=== PATIENT | female | born 2000 | race Caucasian/White ===

== ENCOUNTER 2023-10-04 20:00 | Outpatient (CLI) | payer BC ==
[2023-10-04 21:35] VITALS: BP 113/72; PULSE 102; RESP 16; TEMP 98
--- NOTE | 2023-10-05 09:11 | P.MSEPDOC ---
Presenting Problems - Arrival Data Date of Arrival on Unit: 10/04/23 Time of Arrival on Unit: 20:00 Mode of Transport: Ambulatory - Complaint OB-Reason for Admission/Chief Complaint: Pain Comment: Patient presents to triage with complaints of mild nausea and upper abdominal pain that shoots across abdomen when lying down in bed at night. Medical History - Information : 2 Para: 1 Term: 1 : 0 Abortions: Spontaneous or Elective: 0 Number of Living Children: 1 - Gestational Age Gestational Age by NICKI (wks/days): 34 Weeks and 3 Days Review of Systems - Review of Systems Constitutional: No problems Breast: No problems ENT: No problems Cardiovascular: No problems Respiratory: No problems Gastrointestinal: No problems Genitourinary: No problems Musculoskeletal: No problems Neurological: No problems Skin: No problems Vital Signs - Temperature Temperature: 98.0 F Temperature Source: Temporal Artery Scan - Pulse Pulse Oximetery Pulse Rate: 102 Pulse Assessment Method: Pulse Oximetry - Respirations Respiratory Rate: 16 Oxygen Delivery Method: Room Air O2 Sat by Pulse Oximetry: 97 - Blood Pressure Right Arm Blood Pressure: 113/72 Blood Pressure Mean: 85 Blood Pressure Source: Automatic Cuff Medical Screen Scoring - Assessment - Baby A Baseline FHR: 155 Heart Rate - NICHD Category: Category I (Normal) NST: Reactive Physician Notification - Physician Notified Physician Notified Date: 10/04/23 Physician Notified Time: 20:39 Physician: Stephanie Rader New Order Received: Yes (discharge home) Maternal Triage Index - Maternal Triage Index Presenting for scheduled procedure w/no complaint: No - Stat/Priority 1 Stat Priority 1: No - Urgent/Priority 2 Urgent Priority 2: No Provider Notified: Stephanie Rader - Prompt/Priority 3 Prompt Priority 3: Yes Criteria Met for Priority 3: Patient presents to triage with complaints of mild nausea and upper abdominal pain that shoots across abdomen when lying down in bed at night. Disposition - Disposition OB Disposition: Discharge to home Discharge Date: 10/04/23 Discharge Time: 21:22 I agree with the RN Medical Screening Exam: Yes Case reviewed; plan agreed upon as documented in EMR&OBIX.: Yes Diagnosis: PAIN, UNSPECIFIED
== END 2023-10-04 21:24 ==
LOC: FBPOP 20:00
PROVIDERS: ATTEND Obstetrics & Gynecology
DX: O21.9 Vomiting of pregnancy, unspecified (principal); O99.891 Other specified diseases and conditions complicating pregnancy; Z3A.34 34 weeks gestation of pregnancy
CPT/HCPCS: 59025; 99213

== ENCOUNTER 2023-11-06 11:26 | Outpatient (CLI) | payer BC ==
[2023-11-06 13:35] VITALS: BP 126/82; PULSE 87; RESP 16; TEMP 98.6
--- NOTE | 2023-12-15 09:19 | P.MSEPDOC ---
Presenting Problems - Arrival Data Date of Arrival on Unit: 11/06/23 Time of Arrival on Unit: 11:26 Mode of Transport: Ambulatory - Complaint OB-Reason for Admission/Chief Complaint: Other Comment: DVT symptoms Medical History - Information : 2 Para: 1 Term: 1 : 0 Abortions: Spontaneous or Elective: 0 Number of Living Children: 1 - Gestational Age Gestational Age by NICKI (wks/days): 39 Weeks and 1 Days Review of Systems - Review of Systems Constitutional: No problems Breast: No problems ENT: No problems Cardiovascular: No problems Respiratory: No problems Gastrointestinal: No problems Genitourinary: No problems Musculoskeletal: No problems Neurological: No problems Skin: No problems Comment: Reddened/bruised/edematous area on R roberst Vital Signs - Temperature Temperature: 98.6 F Temperature Source: Temporal Artery Scan - Pulse Pulse Oximetery Pulse Rate: 87 Pulse Assessment Method: Pulse Oximetry - Respirations Respiratory Rate: 16 Oxygen Delivery Method: Room Air O2 Sat by Pulse Oximetry: 98 - Blood Pressure Right Arm Blood Pressure: 126/82 Blood Pressure Mean: 96 Blood Pressure Source: Automatic Cuff Medical Screen Scoring - Assessment - Baby A Baseline FHR: 145 Heart Rate - NICHD Category: Category I (Normal) NST: Reactive Physician Notification - Physician Notified Physician Notified Date: 11/06/23 Physician Notified Time: 12:09 Physician: Ashli Jaffe New Order Received: Yes - Notification Comment Comment: Dr. Jaffe on unit, report given on maternal complaints of R roberts pain/redness. Pt has no complaints but a family hx of DVT and currently has varicose veins. NST is reactive and fetus is very active. Orders to send pt down to ER to be evaluated for DVT. Maternal Triage Index - Maternal Triage Index Presenting for scheduled procedure w/no complaint: No - Stat/Priority 1 Stat Priority 1: No - Urgent/Priority 2 Urgent Priority 2: No - Prompt/Priority 3 Prompt Priority 3: No - Non-Urgent/Priority 4 Non-Urgent Priority 4: Yes Criteria Met for Priority 4: 39 1/7wks, concerned about DVT Disposition - Disposition OB Disposition: Discharge to home Discharge Date: 11/06/23 Discharge Time: 12:15 I agree with the RN Medical Screening Exam: Yes Case reviewed; plan agreed upon as documented in EMR&OBIX.: Yes Diagnosis: RELATED CONDITIONS, UNSPECIFIED, THIRD TRIMESTER
== END 2023-11-06 12:15 | disposition home or self-care (01) ==
LOC: MERGE 11:26 → FBPOP 11:26
PROVIDERS: ATTEND Obstetrics & Gynecology Obstetrics
DX: O12.03 Gestational edema, third trimester (principal); O26.893 Other specified pregnancy related conditions, third trimester; M79.605 Pain in left leg; Z3A.39 39 weeks gestation of pregnancy
CPT/HCPCS: 59025; 99213

== ENCOUNTER 2023-11-06 12:19 | Emergency (ER) | payer BC ==
[2023-11-06 12:35] VITALS: BP 115/75; PULSE 105; RESP 18; TEMP 98
--- NOTE | 2023-11-06 13:39 | US ---
EXAMINATION TYPE: US venous doppler duplex LE RT DATE OF EXAM: 11/06/2023 1:12 PM COMPARISON: NONE CLINICAL INDICATION: Female, 22 years old with history of pain; Right lower leg pain SIDE PERFORMED: Right TECHNIQUE: The lower extremity deep venous system is examined utilizing real time linear array sonog mendel with graded compression, doppler sonography and color-flow sonography. VESSELS IMAGED: Common Femoral Vein Deep Femoral Vein Greater Saphenous Vein * Femoral Vein Popliteal Vein Small Saphenous Vein * Proximal Calf Veins (* superficial vessels) Right Leg: Appears negative for DVT IMPRESSION: Grayscale, color doppler, spectral doppler imaging performed of the deep veins of the lo wer extremities. There is normal flow, compressibility, vascular waveforms.
--- NOTE | 2023-11-06 13:58 | ED ---
Extremity Problem HPI - General Chief complaint: Extremity Problem,Nontraumatic Stated complaint: R Leg Poss Blood Clot Time Seen by Provider: 11/06/23 12:36 Source: patient, RN notes reviewed Mode of arrival: wheelchair - History of Present Illness Initial comments: 22-year-old female presents emergency department with chief complaint of right leg pain, possible DVT. Patient was sent from labor and delivery for evaluation. Patient states she has varicose veins. Patient states that she has an area of pain, swelling. Patient denies any history denies chest pain shortness of breath. Patient is currently 39 weeks - Related Data Home Medications Medication Instructions Recorded Confirmed Vit No.179/Iron/Folic 1 each PO 10/04/23 [ Tablet] Allergies Allergy/AdvReac Type Severity Reaction Status Date / Time No Known Allergies Allergy Verified 11/06/23 12:35 Review of Systems ROS Statement: Those systems with pertinent positive or pertinent negative responses have been documented in the HPI. ROS Other: All systems not noted in ROS Statement are negative. Past Medical History Past Medical History: No Reported History History of Any Multi-Drug Resistant Organisms: None Reported Past Surgical History: No Surgical Hx Reported Past Psychological History: No Psychological Hx Reported Smoking Status: Never smoker Past Alcohol Use History: None Reported Past Drug Use History: None Reported General Exam Limitations: no limitations General appearance: alert, in no apparent distress Head exam: Present: atraumatic, normocephalic, normal inspection Respiratory exam: Present: normal lung sounds bilaterally. Absent: respiratory distress, wheezes, rales, rhonchi, stridor Cardiovascular Exam: Present: regular rate, normal rhythm, normal heart sounds. Absent: systolic murmur, diastolic murmur, rubs, gallop, clicks Extremities exam: Present: other (Right leg pedal pulses equal bilaterally compared to left, there is an area of erythema tenderness in the distal tib-fib region, there is varicose veins noted) Course Vital Signs 11/06/23 12:31 Temperature 98 F Pulse Rate 105 H Respiratory 18 Rate Blood Pressure 115/75 O2 Sat by Pulse 99 Oximetry Medical Decision Making - Medical Decision Making Was pt. sent in by a medical professional or institution (, PA, SNACK BAR ATTENDANT, urgent care, hospital, or jail...) When possible be specific @ -Labor and delivery Did you speak to anyone other than the patient for history (EMS, parent, family, police, friend...)? What history was obtained from this source @ -No Did you review nursing and triage notes (agree or disagree)? Why? @ -I reviewed and agree with nursing and triage notes Were old charts reviewed (outside hosp., previous admission, EMS record, old EKG, old radiological studies, urgent care reports/EKG's, jail records)? Report findings @ -No old charts were reviewed Differential Diagnosis (chest pain, altered mental status, abdominal pain women, abdominal pain men, vaginal bleeding, weakness, fever, dyspnea, syncope, headache, dizziness, GI bleed, back pain, seizure, CVA, palpatations, mental health, musculoskeletal)? @ -Superficial thrombophlebitis, DVT EKG interpreted by me (3pts min.). @ -As above X-rays interpreted by me (1pt min.). @ -None done CT interpreted by me (1pt min.). @ -None done U/S interpreted by me (1pt. min.). @ -Ultrasound negative for acute DVT What testing was considered but not performed or refused? (CT, X-rays, U/S, labs)? Why? @ -None What meds were considered but not given or refused? Why? @ -None Did you discuss the management of the patient with other professionals (professionals i.e. , PA, SNACK BAR ATTENDANT, lab, RT, psych nurse, medical social consultant, board finisher, teacher, bsa officer, assistant case manager)? Give summary @ -No Was smoking cessation discussed for >3mins.? @ -No Was critical care preformed (if so, how long)? @ -No Were there social determinants of health that impacted care today? How? (Homelessness, low income, unemployed, alcoholism, drug addiction, transportation, low edu. Level, literacy, decrease access to med. care, care home, rehab)? @ -No Was there de-escalation of care discussed even if they declined (Discuss DNR or withdrawal of care, Hospice)? DNR status @ -No What co-morbidities impacted this encounter? (DM, HTN, Smoking, COPD, CAD, Cancer, CVA, ARF, Chemo, Hep., AIDS, mental health diagnosis, sleep apnea, morbid obesity)? @ -None Was patient admitted / discharged? Hospital course, mention meds given and route, prescriptions, significant lab abnormalities, [facility]. @ -Discharged patient has no evidence of DVT patient has superficial thrombophlebitis warm compresses, compression stocking and elevation Undiagnosed new problem with uncertain prognosis? @ -No Drug Therapy requiring intensive monitoring for toxicity (Heparin, Nitro, Insulin, Cardizem)? @ -No Were any procedures done? @ -No Diagnosis/symptom? @ -Superficial thrombophlebitis Acute, or Chronic, or Acute on Chronic? @ -Acute Uncomplicated (without systemic symptoms) or Complicated (systemic symptoms)? @ -Uncomplicated Side effects of treatment? @ -No Exacerbation, Progression, or Severe Exacerbation? @ -No Poses a threat to life or bodily function? How? (Chest pain, [place], [place], pneumonia, PE, COPD, DKA, ARF, appy, cholecystitis, CVA, Diverticulitis, Homicidal, Suicidal, threat to staff... and all critical care pts) @ -No Disposition Clinical Impression: Superficial thrombophlebitis Disposition: HOME SELF-CARE Condition: Stable Instructions (If sedation given, give patient instructions): Superficial Thrombophlebitis (ED) Additional Instructions: Please return to the Emergency Department if symptoms worsen or any other concerns. Is patient prescribed a controlled substance at d/c from ED?: No Referrals: None,Stated [Primary Care Provider] - 1-2 days Time of Disposition: 13:58
== END 2023-11-06 14:00 | disposition home or self-care (01) ==
LOC: EC 12:19
DX: I80.01 Phlebitis and thrombophlebitis of superficial vessels of right lower extremity (principal)
CPT/HCPCS: 99283